=== PATIENT | female | born 1970 | race Caucasian/White ===

== ENCOUNTER → 2016-05-25 | Outpatient (CLI) | payer MEDICAID ==
[~2016-05-25] MED LIST: ADULT LOW DOSE81 MG PO; ATIVAN1 MG PO; BUDEPRION XL150 MG PO; CARVEDILOL6.25 MG PO; DULOXETINE 30MG30 MG OR; EFFIENT10 M2 PO; HUMALOG KW100 UNIT/1 SQ; HYDROCODONE-APA1 TA1 PO; LANTUS INS100 UNITS/ SC; LASIX 40MG. TAB40 MG PO; LIPITOR20 MG PO; RAMIPRIL10 MG PO; RANEXA500 M1 PO
--- NOTE | 2016-05-25 12:34 | RADIOLOGY REPORT PS360 ---
KNEE-3 VIEWS-LT HISTORY: Post traumatic pain FALL 10 DAYS AGO,LEFT KNEE PAIN, S/P RT PNEUMONIA COMPARISON: None FINDINGS: There are mild osteoarthritic changes of the medial compartment and patellofemoral joint. There is a vague curvilinear lucency along the medial aspect of the lateral tibial plateau seen on the frontal view and a vague lucency along the posterior aspect of the tibial plateau seen on the lateral view. Nondepressed plateau fracture is a consideration and may be confirmed with CT. Small suprapatellar effusion noted. Vascular calcification. IMPRESSION: 1. Possible nondepressed lateral tibial plateau fracture which may be confirmed with CT. 2. Mild osteoarthritic change with small effusion suspected
--- NOTE | 2016-05-25 12:34 | RADIOLOGY REPORT PS360 ---
CHEST(2 VIEWS-NOT PORTABLE) HISTORY: Follow-up pneumonia FALL 10 DAYS AGO,LEFT KNEE PAIN, S/P RT PNEUMONIA COMPARISON: -16 FINDINGS: The cardiomediastinal silhouette and pulmonary vascularity are within normal limits. Right upper lobe infiltrate has improved. Calcified granulomas present in the left midlung. The lungs are otherwise clear. Epidural stimulator device present lower thoracic spine. Prior right shoulder surgery. IMPRESSION: Resolved right upper lobe pneumonia, no acute finding
== END ==
LOC: RAD 11:38
DX: M25.562 Pain in left knee (principal); Z87.01 Personal history of pneumonia (recurrent)

== ENCOUNTER → 2016-08-02 | Outpatient (CLI) | payer MEDICAID | LOC: LAB 08:03 | DX: E27.8 Other specified disorders of adrenal gland (principal) ==

== ENCOUNTER → 2017-03-26 | Outpatient (CLI) | payer MEDICAID ==
--- NOTE | 2017-03-26 13:46 | RADIOLOGY REPORT PS360 ---
FOOT-RT-3 VIEWS HISTORY: Right foot pain, open wound CELLULITIS RT FOOT ORDERING PHYSICIAN: Rikki Quintanilla MD PATIENT AGE: 47 years COMPARISON: None FINDINGS: There is a nondisplaced midshaft fracture involving the proximal phalanx of the fourth toe. The fracture does appear acute. There are osteoarthritic changes of the first MTP and the tarsometatarsal joints as well as the navicular cuneiform joint. There is pes planus. There is generalized osteopenia. No obvious destructive bony process evident. Flexion deformity noted of digits 2 through 5 IMPRESSION: 1. Osteoarthritis of the foot as described above. 2. Acute nondisplaced oblique fracture of the proximal phalanx of the fourth toe. 3. Flexion deformity of digits 2 through 5.
== END ==
LOC: RAD 12:34 → LAB 12:34
DX: L02.611 Cutaneous abscess of right foot (principal)

== ENCOUNTER → 2017-04-30 | Outpatient (CLI) | payer MEDICAID ==
[~2017-04-30] MED LIST changes: +BIDIL; +COREG3.125 MG; +LYRICA20 MG/ML; +TRAZODONE HCL100 MG
--- NOTE | 2017-05-02 07:24 | RADIOLOGY REPORT PS360 ---
ARTERIAL/SBP-LFHUMTBMULU-EIA CHRONIC NON HEALING ULCERS, previous smoker, hypertension, diabetes, bilateral rest pain and claudication, nonhealing ulcer on the right ORDERING PHYSICIAN: ANDREW GARCIA DPM PATIENT AGE: 47 years TECHNIQUE: Segmental pressures obtained of both right and left leg. These are compared to brachial blood pressure to yield index at each level sampled including summary TIFFANIE. The data sheets from the procedure are available in PACS FINDINGS Rest study only performed today No prior studies available for comparison. Blood pressures reported are in millimeters mercury. RIGHT LEG TIFFANIE = 0.9. Right TBI =0.6 Brachial BP: 163 Thigh BP: 160 Calf BP: 128 Ankle PT: 132 Ankle DP : 151 Digit =112 LEFT LEG TIFFANIE = 0.8 Left TBI equals 0.7 Brachial BPD: 174 Thigh BP: 166 Calf BP: 139 Ankle PT:132 Ankle DP: 138 Digit = 123 Pulses and waveforms: Diminished pulses with abnormal waveforms IMPRESSION: 1. The right TIFFANIE is lower limits of normal. The left TIFFANIE slightly low indicating mild atherosclerotic vascular disease. 2. The right TBI is low at 0.6 indicating small vessel disease in the right foot. 3. The left TBI is lower limits of normal 4. Diminished pulses with abnormal waveforms
== END ==
LOC: RT 10:57
DX: L02.611 Cutaneous abscess of right foot (principal)